=== PATIENT | male | born 1950 ===

== ENCOUNTER 2017-11-30 11:10 | Emergency (ER) | payer OTHER ==
[~2017-11-30] VITALS: Ht 172.7 cm; Wt 102.1 kg
[~2017-11-30 11:10] MED LIST: BALANCED B-CO400 MCG PO; GABAPENTIN600 MG PO; GAS-X80 MG PO; LOTREL 10/20 CA1 CAP PO; METFORMIN HCL1000 M2 PO; OMEPRAZOLE40 MG PO; PANADOL EXTRA500 MG PO; PERCOCET 5/3251 TAB PO; POLY119PG PO; ZIAC PO
== END 2017-11-30 13:33 | disposition home or self-care (01) ==
LOC: ER 11:10
DX: J06.9 Acute upper respiratory infection, unspecified (principal); J11.1 Influenza due to unidentified influenza virus with other respiratory manifestations